=== PATIENT | male | born 1955 | race Two or more races ===

== ENCOUNTER 2020-03-02 07:52 | Day surgery (SDC) | payer OTHER | END 2020-03-02 13:14 | disposition home or self-care (01) | LOC: AMB-ENDOS 07:52 | PROVIDERS: ATTEND Surgery | DX: D12.2 Benign neoplasm of ascending colon (principal); D12.8 Benign neoplasm of rectum; Z20.828 Contact with and (suspected) exposure to other viral communicable diseases ==

== ENCOUNTER 2020-06-22 10:45 | Inpatient (IN) | payer OTHER ==
[~2020-06-22] VITALS: Ht 177.8 cm; Wt 84.4 kg
[2020-06-23] MEDS ORDERED: ZYLOPRIM300 MG PO (07:59)
[2020-06-23] MEDS ORDERED: HORIZANT300 MG PO (07:59)
[2020-06-23] MEDS ORDERED: UROXATRAL10 MG PO (07:59)
[2020-06-23] MEDS ORDERED: MITIGARE0.6 MG PO (08:00)
[2020-06-23] MEDS ORDERED: VITAMIN D3 (08:00)
[2020-06-23] MEDS ORDERED: VITAMIN B 12 (08:01)
[2020-06-23] MEDS ORDERED: OMEGA 3 500 SO1 EACH PO (08:02)
[2020-06-23] MEDS ORDERED: STRESS-C WITH1 EACH PO (08:03)
[2020-06-28] MEDS ORDERED: VITAMIN B-121000 MC4 (10:13)
[2020-06-28] MEDS ORDERED: GABAPENTIN300 M2 (10:14)
[2020-06-28] MEDS ORDERED: VITAMIN D3125 MC2 (10:14)
[2020-07-01] MEDS ORDERED: HYOSCYAMINE0.125 M1 SL (09:59)
[2020-07-01] MEDS ORDERED: OXYC1TAB9 PO (09:59)
[2020-07-01] MEDS ORDERED: INTESTINEX680 M1 PO (09:59)
== END 2020-07-01 14:07 | disposition home or self-care (01) | DRG 331 ==
LOC: O/R 06-28 09:08 → SURG 06-28 09:08 → SURH 06-28 09:08 → SURG 06-29 13:33
PROVIDERS: ADMIT Surgery; ATTEND Surgery
PROC: 0D1B4Z4 Bypass Ileum to Cutaneous, Percutaneous Endoscopic Approach (ICD-10-PCS; 2020-06-28)
PROC: 07BC4ZX Excision of Pelvis Lymphatic, Percutaneous Endoscopic Approach, Diagnostic (ICD-10-PCS; 2020-06-28)
PROC: 0DJD8ZZ Inspection of Lower Intestinal Tract, Via Natural or Artificial Opening Endoscopic (ICD-10-PCS; 2020-06-28)
PROC: 0DBP4ZZ Excision of Rectum, Percutaneous Endoscopic Approach (ICD-10-PCS; principal; 2020-06-28 11:45)
DX: C20 Malignant neoplasm of rectum (principal); D12.2 Benign neoplasm of ascending colon

== ENCOUNTER 2020-09-04 07:31 | Inpatient (IN) | payer OTHER ==
[~2020-09-04] VITALS: Ht 177.8 cm; Wt 83.0 kg
[~2020-09-04 07:31] MED LIST: GABAPENTIN300 M2; HORIZANT300 MG PO; HYOSCYAMINE0.125 M1 SL; INTESTINEX680 M1 PO; MITIGARE0.6 MG PO; OMEGA 3 500 SO1 EACH PO; OXYC1TAB9 PO; STRESS-C WITH1 EACH PO; UROXATRAL10 MG PO; VITAMIN B 12; VITAMIN B-121000 MC4; VITAMIN D3; VITAMIN D3125 MC2; ZYLOPRIM300 MG PO
[2020-09-04] MEDS ORDERED: MIRALAX17 GM (07:46)
[2020-09-04] MEDS ORDERED: LYRICA50 MG (07:48)
[2020-09-04] MEDS ORDERED: PROBIOTIC1 EAC2 (07:49)
[2020-09-06] MEDS ORDERED: INTESTINEX680 M1 (08:25)
[2020-09-06] MEDS ORDERED: B-COMPLEX/C T400 MCG (08:26)
[2020-09-06] MEDS ORDERED: GABAPENTIN300 M2 (08:26)
[2020-09-06] MEDS ORDERED: PREGABALIN75 MG (08:27)
== END 2020-09-08 10:18 | disposition home or self-care (01) | DRG 389 ==
LOC: ER 07:31 → SURH 11:55
PROVIDERS: ADMIT Surgery; ATTEND Surgery
PROC: BW21YZZ Computerized Tomography (CT Scan) of Abdomen and Pelvis using Other Contrast (ICD-10-PCS; principal; 2020-09-04)
DX: K56.699 Other intestinal obstruction unspecified as to partial versus complete obstruction (principal); C20 Malignant neoplasm of rectum; E86.0 Dehydration; Z20.822 Contact with and (suspected) exposure to COVID-19; M10.9 Gout, unspecified

== ENCOUNTER 2020-11-23 09:45 | Inpatient (IN) | payer OTHER ==
[~2020-11-23] VITALS: Ht 177.8 cm; Wt 83.9 kg
[~2020-11-23 09:45] MED LIST changes: +B-COMPLEX/C T400 MCG; +INTESTINEX680 M1; +LYRICA50 MG; +MIRALAX17 GM; +PREGABALIN75 MG; +PROBIOTIC1 EAC2
[2020-12-03] MEDS ORDERED: HYOSCYAMINE0.125 M1 SL (08:30)
[2020-12-03] MEDS ORDERED: ULTRACET PO (08:31)
[2020-12-03] MEDS ORDERED: INTESTINEX680 M1 PO (08:31)
== END 2020-12-03 09:16 | disposition home or self-care (01) | DRG 331 ==
LOC: EDSTATUS 09:45 → ADM 09:45 → O/R 11-29 06:15 → SURG 11-29 06:15 → SURH 11-29 09:45 → SURG 11-29 18:39
PROVIDERS: ADMIT Surgery; ATTEND Surgery
PROC: 3E0F7SF Introduction of Other Gas into Respiratory Tract, Via Natural or Artificial Opening (ICD-10-PCS; 2020-11-29)
PROC: 0DBB0ZZ Excision of Ileum, Open Approach (ICD-10-PCS; principal; 2020-11-29 11:15)
DX: C20 Malignant neoplasm of rectum (principal)

== ENCOUNTER 2025-03-16 07:00 | Day surgery (SDC) | payer OTHER ==
[~2025-03-16 07:00] MED LIST changes: +ULTRACET PO
[2025-03-16] MEDS ORDERED: fentaNYL CITRATE 50 MCG/ML AMPUL IV ONE (13:30)
[2025-03-16] MEDS ORDERED: DIPHENHYDRAMINE HCL 50 MG/ML VIAL 1ML IV ONE (13:30)
[2025-03-16] MEDS ORDERED: MIDAZOLAM HCL 2 MG/2 ML VIAL IV ONE (13:30)
== END 2025-03-16 15:40 | disposition home or self-care (01) ==
LOC: AMB-ENDOS 07:00
PROVIDERS: ATTEND Surgery
DX: D12.3 Benign neoplasm of transverse colon (principal); K63.5 Polyp of colon; K57.30 Diverticulosis of large intestine without perforation or abscess without bleeding